=== PATIENT | male | born 1930 | race Caucasian/White ===

== ENCOUNTER → 2016-04-09 | Outpatient (CLI) | payer OTHER ==
[~2016-04-09] MED LIST: ALPR0.5T99; APIX2.5T PO; APIX5TAB PO; ASPI1TAB69 PO; ATOR1TAB18 PO; CLOP75; ECOT81TA2; HYDR12.57 PO; LIPI80TA16; LISI2.5T3 PO; METO-424 PO; METO25TA3 PO; TAMS0.4C4 PO; TRIA37.512; VITA100018 PO; VITA10002 PO; VITA20004 PO
== END ==
LOC: CPRE 12:16
PROVIDERS: ATTEND Plastic Surgery
DX: Z01.812 Encounter for preprocedural laboratory examination (principal); D49.9 Neoplasm of unspecified behavior of unspecified site

== ENCOUNTER → 2016-04-12 | Day surgery (SDC) | payer OTHER ==
[~2016-04-12] VITALS: Ht 172.7 cm; Wt 92.6 kg
[~2016-04-12] MED LIST changes: +*RESP: ALBUTEROL 2.5 MG/3 ML NEB (PRN) PERIprocedural Use ONLY NEB ONE; +*morphine SULFATE 8 MG/ML PERIprocedure ONLY ONE; -ALPR0.5T99; -CLOP75; +DEXTROSE 5%-LACTATED RING INJ 1,000 ML IV SCH; +DO NOT ADM ANY ANTICOAGULANT DRUGS XX PRN; -ECOT81TA2; +INSULIN HUMAN REGULAR 1,000 UNITS/10 ML VIAL SQ PRN; +LACTATED RINGER'S 1000 ML IV SCH; +LIDOCAINE 1%/EPINEPHrine 1:100,000 SOLN 20 ML VIAL ONE; -LIPI80TA16; +LISINOPRIL 5 MG TAB PO ONE; +METOPROLOL TARTRATE 25 MG TAB PO PRN; +MORPHINE SULFATE 4 MG/ML INJ IV PRN; +MUPIROCIN 2% OINT 22 GM TUBE TOP ONE; +MUPIROCIN 2% OINT 22 GM TUBE TOPICAL PRN; +MUPIROCIN 2% OINT 22 GM TUBE TOPICAL SCH; +ONDANSETRON HCL 4 MG/2 ML VIAL IV PUSH ONE; +ONDANSETRON HCL 4 MG/2 ML VIAL IV PUSH PRN; +PROPOFOL 200 MG/20 ML AMP IV ONE; +SODIUM BICARBONATE 8.4% INJ 50 ML ONE; +SODIUM CHLOR 0.9% 250 ML INJ 250 ML ONE; +SODIUM CHLORID 0.9% 500 ML IV SCH; -TRIA37.512; +VANCOMYCIN HCL 1000 MG ON-CALL/NS 250 ML IV SCH; +VANCOMYCIN HCL 1000 MG VIAL ONE; +ceFAZolin 1,000 MG/NS 100 ML IV SCH; +ePHEDrine/NS 50 MG/5 ML SYR IV ONE; +fentaNYL CITRATE 250 MCG/5 ML AMP ONE
[2016-04-12 07:10] VITALS: BP 150/58; PULSE 57; RESP 16; TEMP 98.5; O2SAT 97
[2016-04-12 12:35] VITALS: TEMP 97.6
[2016-04-12 13:55] VITALS: BP 109/79; PULSE 88; RESP 18; O2SAT 93
--- NOTE | 2016-04-17 17:55 | MP ---
cc: EVERTON RAIN M.D. DATE OF SURGERY: 04/12/2016 PREOPERATIVE DIAGNOSIS 2 cm biopsy-proven basal cell carcinoma tip of nose. POSTOPERATIVE DIAGNOSIS 2 cm biopsy-proven basal cell carcinoma tip of nose. OPERATION PERFORMED Wide local excision of 2 cm biopsy-proven basal cell carcinoma tip of nose with ___ margins with a defect of 3.5 cm, frozen m frozen section control, margins clear. Reconstruction with bilobed pedicle flap, two flaps, one along the side of the nose, one on the dorsum of the nose. SURGEON Dr. Everton Rain. ANESTHESIA General endotracheal. ESTIMATED BLOOD LOSS 20 ccs. FLUID REPLACEMENT 700 ccs crystalloids. COMPLICATIONS None. DRAINS None. DESCRIPTION OF OPERATION The patient was seen in the preop area. The tumor margins were marked. The patient was given IV vancomycin, Ancef, Lisinopril and he was brought to the operating room where he was placed on the operative table. He was pre-warmed with a Madonna Hugger and pneumatic compression garments placed on his lower extremities. He was then placed under general endotracheal anesthesia. The nose was infiltrated with 1% Xylocaine, 1:100,000 epinephrine. The table was turned to 180 degrees. The patient's face and head were prepped and draped in sterile fashion. The endotracheal tube was taped to his cheek with Mastisol and half inch Steri-Strips. The time-out was done, all concurred. The tumor mass was excised circumferentially as drawn down to the perichondrium of the lower lateral and upper lateral cartilages. A suture was placed at 12 o'clock and it was sent to frozen section for margins. Dr. Mendy Weber called and said that the margins were clear. The two flaps had been drawn, one flap circular over the dorsum of the nose and then a second flap triangular coming alongside of the nose. These flaps were incised full-thickness down to the periosteum, perichondrium and were elevated. The entire dorsum of the nose was elevated to allow rotation and closure of these flaps into the defect. Meticulous hemostasis was obtained with electrocautery. The triangular flap defect was closed with a running vertical mattress suture of 5-0 Prolene. The triangular flap was moved into the circular portion of the donor flap of the circular flap and sutured in place with interrupted vertical mattress sutures of 6-0 Prolene and trimming the flap to make it circular to fit into the defect. The circular flap was rotated into the circular defect of the excision of the cancer. A triangle along the ala was excised to take out the dog ear that was created and the flap was carefully rotated into place and sutured in place with vertical mattress sutures of 6-0 Prolene. The flap and the triangle were ___ to make sure the ala on the right and left were similar. The nose was packed with Merocel sponges impregnated with Bactroban ointment, inflated with saline. The wounds were all cleaned. Bactroban ointment was applied. At the completion of the operation the nose had good symmetry and contour, the flaps had good capillary filling. The patient was awakened, extubated, transferred to the stretcher and sent to recovery in satisfactory condition. MD TYREL Payan/MICHAEL /10:32 AM /5:38 PM
== END | disposition home or self-care (01) ==
LOC: HSDC 06:30
PROVIDERS: ATTEND Plastic Surgery
DX: C44.311 Basal cell carcinoma of skin of nose (principal)
CPT/HCPCS: 00300; 14060; 88305; 88331; 94664; J0690; J2270; J2405; J3010; J3370; J7050; J7120; J7613